=== PATIENT | male | born 1995 | race Caucasian/White ===

== ENCOUNTER 2018-11-26 04:44 | Emergency (ER) | payer OTHER ==
[~2018-11-26] VITALS: Ht 172.7 cm; Wt 109.9 kg
[~2018-11-26 04:44] MED LIST: DENIES; HYDR-3498 PO; NAPR-688 PO
[2018-11-26 04:46] VITALS: Ht 172.7 cm; Wt 109.9 kg
--- NOTE | 2018-11-26 06:21 | PSY ---
Date/Time of Note Date/Time of Note DATE: 11/26/18 TIME: 06:11 Psychiatric Subjective Eval Consent Pt consented to telemedicine: Yes Subjective Evaluation Patient location: emergency Chief Complaint: ANXIETY Medical history Problems Medical Problems: (1) Back pain Status: Acute Allergies: Coded Allergies: No Known Drug Allergies (Verified Allergy, Mild, 11/22/10) Assessment and Plan Recommendation/Plan Discharge Disposition: Psychiatric inpatient Legal Status: Voluntary Assessment Additional comments: IDENTIFYING INFORMATION: 23 year old Male patient who is currently located at the hospital and for whom psychiatric consultation was requested. SOURCES OF INFORMATION: The patient who appears to be reliable and the medical records; the nursing staff. CHIEF COMPLAINT: "I have not eaten for 2 days". HISTORY OF PRESENT ILLNESS: The patient was interviewed via telemedicine in the presence of and under the supervision of nursing staff of the hospital. The consent to conducting this interview via telemedicine was obtained by the nursing staff at the hospital. LAZ Lindsey reports that the patient presented with anxiety, depressed mood, thoughts of suicide yesterday, admitted to low appetite. The patient reports having fallen and could not feel his feet, panicked and had SOB. Admits to having been depressed since 2 days ago, insomnia, following a break up with his exgirlfriend of 4 years after he found out she was chatting with someo ne else. Reports that he was not eating in 2 days due to the emotional pain from the break-up. He smoked MJ to get his appetite back but had an anxiety attack. Admits to thinking of suicide yesterday; he was at the edge of the roof thinking of suicide yesterday in the afternoon. The patient denies having anhedonia, AH, VH, delusions. Last drink was yesterday. The patient denies using alcohol heavily or regularly. The patient reports using MJ lately. The patient denies using any other substances. In terms of past psychiatric history, the patient reports having a history of no past psychiatric hospitalizations. The patient reports having a history of no past suicide attempts. Admits to h/o SI in the past for 1 week. Past medication trials: None. PAST MEDICAL HISTORY: none. CURRENT MEDICATIONS: none. ALLERGIES TO MEDICATIONS: NKDA. LABORATORY TESTS: pending. SOCIAL HISTORY: ex-girlfriend, lives with parents and 1 daughter, works at [employer], no access to firearms. REVIEW OF SYSTEMS: Constitutional (e.g., fever, weight loss): negative; Eyes, Ears, Nose, Mouth, Throat: negative; Cardiovascular: negative; Respiratory: negative; Gastrointestinal: negative; Genitourinary: negative; Musculoskeletal: negative; Integumentary (skin and/or breast): negative; Neurological: negative; Psychiatric: as per HPI; Endocrine: negative; Hematologic/Lymphatic: negative; Allergic/Immunologic: negative. MENTAL STATUS EXAMINATION: General Appearance and Behavior: Calm, cooperative with the interview, pleasant with the current interviewer, makes fair eye contact, fairly groomed, no abnormal movements noted, Speech: Regular rate, regular rhythm, normal latency, normal volume, somewhat decreased amount, Flow of thought: sequential, logical, goal-directed, Content of thought: no auditory hallucinations, no visual hallucinations, no delusions, positive for suicidal ideation; no homicidal ideation, Mood: "depressed", Affect: dysthymic, dysphoric, not reactive, Attention: normal based on the interview, Insight: fair, Judgment: poor, Memory: normal based on the interview, Sensorium: alert and oriented to person, place and date. ASSESSMENT: The patient's presentation and history are consistent with the diagnosis of unspecified mood disorder. The patient presents status post near suicide attempt yesterday, as well as depressive symptoms in the context of medication noncompliance, psychosocial stressors and substance use. No evidence of psychosis, libra, hypomania on exam. PLAN: - Medication management: Would start haloperidol 5 mg IM PRN severe agitation q4 hours. Would start diphenhydramine 50 mg IM PRN severe agitation q4 hours. Would start lorazepam 2 mg IM PRN severe agitation q4 hours Will defer to the inpatient psychiatry team for other medication changes. - Labs: Please check CBC, CMP, Alcohol level, UDS, TSH. - Psychotherapy: Provided supportive psychotherapy and psychoeducation. - Disposition: Would recommend voluntary admission to the inpatient psychiatric unit as the patient would benefit from such an intervention so long as the patient has been cleared medically for admission to psychiatry. The patient is agreeable to being hospitalized in the inpatient psychiatric unit at this time. Would place on suicide precautions. Discussed about the above plan with Dr. Ku. SARAHI ALONSO MD Nov 26, 2018 06:21
--- NOTE | 2018-11-26 06:31 | ERD ---
ER Documentation Chief Complaint Chief Complaint ANXIETY HPI 23-year-old male presents the emergency department complaining of significant anxiety and depressive symptoms. According to the patient, he was actively suicidal yesterday and was actually on a roof considering jumping off. He has been despondent and depressed recently. Currently he reports no acute medical conditions. ROS All systems reviewed and are negative except as per history of present illness. Medications Home Meds Active Scripts Naproxen* (Naproxen*) 500 Mg Tablet, 500 MG PO BID PRN for PAIN, #30 TAB Prov:SAM ARVIZU PA-C 05/31/15 Hydrocodone Bit-Acetaminophen* ([place]*) 5-325 Mg Tab, 1 TAB PO Q6 PRN for PAIN, #7 TAB Prov:SAM ARVIZU PA-C 05/31/15 Reported Medications [Denies] No Conflict Check 11/22/10 Allergies Allergies: Coded Allergies: No Known Drug Allergies (Verified Allergy, Mild, 11/22/10) PMhx/Soc Medical and Surgical Hx: pt denies Medical Hx, pt denies Surgical Hx History of Surgery: No Anesthesia Reaction: No Hx Neurological Disorder: No Hx Respiratory Disorders: No Hx Cardiac Disorders: No Hx Psychiatric Problems: No Hx Miscellaneous Medical Probl: No Hx Alcohol Use: Yes Hx Substance Use: Yes (MARIJUANA) Hx Tobacco Use: Yes Smoking Status: Current some day smoker Physical Exam Vitals Vital Signs Date Temp Pulse Resp B/P (MAP) Pulse Ox O2 O2 Flow FiO2 Time Delivery Rate 11/26/18 72 14 146/93 100 Room Air 05:50 (110) 11/26/18 98.2 70 18 154/94 97 04:46 (114) Physical Exam GENERAL: The patient is well developed and appropriate for usual state of health in no apparent distress HEENT: Pupils equal, round, and reactive to light. EOMI. There is no scleral icterus. NECK: C-spine is soft and supple, there is no meningismus. There is no cervical lymphadenopathy. LUNGS: Clear to auscultation bilaterally. There are no rales, wheezes or rhonchi. HEART: Regular rate and rhythm, no murmurs, clicks, rubs or gallops. ABDOMEN: Soft, non-tender, non-distended. There are bowel sounds in all four quadrants. No rebound or guarding. EXTREMITIES: There is no peripheral cyanosis or edema. No focal swelling or erythema. NEURO: The patient moves all four extremities with 5/5 strength. Cranial nerves II - XII are intact. Normal gait. Alert and oriented SKIN: There is no apparent rash or petechiae. HEME/LYMPHATIC: There is no evidence of excessive bruising or lymphedema. PSYCHIATRIC: Patient is anxious and depressed. He has a depressed and flattened affect and demeanor. He is exposing suicidal ideation with a plan. Result Diagram: 11/26/18 0633 11/26/18 0633 Results 24 hrs Laboratory Tests Test 11/26/18 06:33 White Blood Count 14.2 10^3/ul Red Blood Count 5.56 10^6/ul Hemoglobin 14.4 g/dl Hematocrit 44.4 % Mean Corpuscular Volume 79.9 fl Mean Corpuscular Hemoglobin 25.9 pg Mean Corpuscular Hemoglobin Concent 32.4 g/dl Red Cell Distribution Width 13.2 % Platelet Count 387 10^3/UL Mean Platelet Volume 9.2 fl Immature Granulocytes % 0.500 % Neutrophils % 72.1 % Lymphocytes % 20.0 % Monocytes % 6.6 % Eosinophils % 0.4 % Basophils % 0.4 % Nucleated Red Blood Cells % 0.0 /100WBC Immature Granulocytes # 0.070 10^3/ul Neutrophils # 10.3 10^3/ul Lymphocytes # 2.8 10^3/ul Monocytes # 0.9 10^3/ul Eosinophils # 0.1 10^3/ul Basophils # 0.1 10^3/ul Nucleated Red Blood Cells # 0.0 10^3/ul Urine Color BEAU Urine Clarity SLIGHTLY CLOUDY Urine pH 5.0 Urine Specific [place] 1.030 Urine Ketones TRACE mg/dL Urine Nitrite NEGATIVE mg/dL Urine Bilirubin NEGATIVE mg/dL Urine Urobilinogen 2+ mg/dL Urine Leukocyte Esterase NEGATIVE Clarence/ul Urine Microscopic RBC 0 /HPF Urine Microscopic WBC 0 /HPF Urine Amorphous Crystals MANY /HPF Urine Hemoglobin NEGATIVE mg/dL Urine Glucose NEGATIVE mg/dL Urine Total Protein 1+ mg/dl Sodium Level 144 mmol/L Potassium Level 4.0 mmol/L Chloride Level 105 mmol/L Carbon Dioxide Level 27 mmol/L Anion Gap 12 Blood Urea Nitrogen 14 mg/dl Creatinine 0.84 mg/dl Est Glomerular Filtrat Rate mL/min > 60 mL/min Glucose Level 127 mg/dl Calcium Level 9.4 mg/dl Total Bilirubin 0.7 mg/dl Direct Bilirubin 0.00 mg/dl Indirect Bilirubin 0.7 mg/dl Aspartate Amino Transf (AST/SGOT) 44 IU/L Alanine Aminotransferase (ALT/SGPT) 76 IU/L Alkaline Phosphatase 65 IU/L Total Protein 8.3 g/dl Albumin 4.7 g/dl Globulin 3.60 g/dl Albumin/Globulin Ratio 1.30 Salicylates Level < 1.0 mg/dl Urine Opiates Screen Negative Acetaminophen Level < 10.0 ug/ml Urine Barbiturates Negative Urine Amphetamines Screen Negative Urine Benzodiazepines Screen Negative Urine Cocaine Screen Negative Urine Cannabinoids Positive Ethyl Alcohol Level < 10.0 mg/dl Procedures/MDM Patient was taken to a room, seen and evaluated. Comfort measures were in itiated. Diagnostic tests were ordered and reviewed. CONSULTATION: Tele-psychiatry consult appreciated REEVALUATION: 0735: Diagnostic tests were appreciated. Patient was deemed medically clear. MEDICAL DECISION MAKING: Patient presents with symptomatology consistent with the decompensation of previously diagnosed psychiatric disease. Based on history, physical exam and appropriate lab tests, I appreciate no evidence of significant life threatening injury or illness that precludes psychiatric hospitalization. Patient is thus "medically clear" for psychiatric admission. In regards to the psychiatric complaints, this patient has clear evidence of high risk psychiatric symptoms with significant risk for decompensation, thus requiring hospitalization for stabilization. Departure Diagnosis: Primary Impression: Suicidal behavior Condition: CONSUELO Starks Nov 26, 2018 06:31
[2018-11-26 09:30] VITALS: BP 138/80; PULSE 67; RESP 20
== END 2018-11-26 09:40 ==
LOC: FTE 04:44 → E/R 09:40
DX: R45.851 Suicidal ideations (principal); F17.210 Nicotine dependence, cigarettes, uncomplicated
CPT/HCPCS: 36415; 80053; 80307; 81001; 85025; Z7502

== ENCOUNTER 2018-12-02 12:25 | Emergency (ER) | payer OTHER ==
[~2018-12-02] VITALS: Ht 165.1 cm; Wt 106.7 kg
[2018-12-02 12:40] VITALS: BP 155/88; PULSE 87; RESP 18; Ht 165.1 cm; Wt 106.7 kg
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
[2018-12-02] MEDS ORDERED: IBUPROFEN 600 MG TAB PO ONE (13:30)
[2018-12-02] MEDS ORDERED: ACETAMINOPHEN 325 MG TAB PO ONE (13:30)
[2018-12-02] MEDS ORDERED: BACL10TA PO (15:17)
[2018-12-02] MEDS ORDERED: IBUP-1561 PO (15:17)
[2018-12-02] MEDS ORDERED: ACET325T33 PO (15:17)
== END 2018-12-02 15:27 | disposition home or self-care (01) ==
LOC: FTE 12:25
DX: S20.211A Contusion of right front wall of thorax, initial encounter (principal); F17.210 Nicotine dependence, cigarettes, uncomplicated; V47.5XXA Car driver injured in collision with fixed or stationary object in traffic accident, initial encounter
CPT/HCPCS: 71250; 80048; 80307; 85025; Z7502; Z7610